=== PATIENT | male | born 1975 | race Caucasian/White ===

== ENCOUNTER 2022-06-21 11:33 | Inpatient (IN) | payer OTHER ==
[2022-06-21 12:06] LABS: Absolute Lymphocytes (CBC) 1.1 K/uL (0.7-4.9); Hematocrit 44.3 % (36.0-45.0); Lymphocytes % 11.3 % (15.3-44.8); MCV 86.7 fL (80-100); MPV 8.4 fL (7.6-11.3); RBC Red Blood Cell Count 5.11 M/uL (3.86-4.86)
[2022-06-21] MEDS ORDERED: METRONIDAZOLE 500mg IVPB 500 MG/100 ML BAG IV ONE (12:06)
[2022-06-21] MEDS ORDERED: MORPHINE 4 MG/ML SYR ONE ×3 (12:06→17:13)
[2022-06-21] MEDS ORDERED: CIPROFLOXACIN 400mg IV 400 MG/200 ML BAG IV ONE (12:06)
[2022-06-21] MEDS ORDERED: ONDANSETRON 4 MG/2 ML VIAL ONE ×3 (12:06→17:13)
[2022-06-21] MEDS ORDERED: NA CHLORIDE 0.9% 1,000 ML ONE (12:07)
[2022-06-21 12:11] LABS: Protime INR 1.15
[2022-06-21 12:26] LABS: Albumin 3.9 g/dL (3.4-5.0); Bilirubin Direct 0.2 mg/dL (0-0.2); Bilirubin Total 0.7 mg/dL (0.2-1.0); Magnesium 1.8 mg/dL (1.6-2.4); Potassium 3.7 mmol/L (3.5-5.1); Protein, Total 7.5 g/dL (6.4-8.2); Troponin High Sensitivity 16.9 pg/mL (<58.9)
[2022-06-21 12:59] LABS: SARS-COV-2 RT PCR NEGATIVE (NEGATIVE)
--- NOTE | 2022-06-21 13:19 | RAD REPORT ---
EXAM DESCRIPTION: CT - Abdomen Pelvis W Contrast - 06/21/2022 12:43 pm CLINICAL HISTORY: Abdominal distention. Left lower quadrant pain. Blood in stool COMPARISON: None. TECHNIQUE: Thin cut axial CT imaging of the abdomen and pelvis was performed following intravenous a dministration of 95 mL Isovue-300. Multiplanar reformats were generated and reviewed. All CT scans are performed using dose optimization technique as appropriate and may include automated exposure control or mA/KV adjustment according to patient size. FINDINGS: No suspicious findings in the lung bases. The liver, spleen, and pancreas show no suspicious findings. Gallbladder and biliary tree are also wi thout suspicious finding. Symmetric renal function is seen with no hydronephrosis or suspicious renal mass. No small bowel dilation. Long segment wall thickening and suspected intramural edema involving the sp lenic flexure, extending to the distal descending colon, albeit within limits of suboptimal colonic d istention. Mild sigmoid diverticulosis. No free air, free fluid or inflammatory stranding. No hernia, mass or bulky lymphadenopathy. Mild stranding along a few nonenlarged lymph nodes in the m esentery is nonspecific and could be reactive. The urinary bladder is suboptimally distended, which limits evaluation, without discrete abnormality. No suspicious bony findings. IMPRESSION: Long segment splenic flexure through distal descending colon wall thickening and edema, nonspecific but suggestive of segmental infectious or inflammatory colitis.
[2022-06-21] MEDS ORDERED: CEFTRIAXONE 2000 MG/VIAL ONE (13:48)
[2022-06-21] MEDS ORDERED: NA CHLORIDE 0.9% 50 ML ONE (13:49)
[2022-06-21 13:50] LABS: Urine Blood Negative (Negative); Urine Glucose Negative (Negative); Urine Protein Negative (Negative)
--- NOTE | 2022-06-21 13:50 | ER ---
Nurse's Notes [facility] Name: Bebo Chung Age: 47 yrs Sex: Male : 1975 Arrival Date: 06/21/2022 Time: 11:40 Bed 13 Private MD: Diagnosis: GI Bleed/ Gastrointestinal hemorrhage, unspecified-LOWER;Lower abdominal pain, unspecified-LEFT LOWER QUADRANT;Left sided colitis with rectal bleeding Presentation: 06/21 11:30 Chief complaint: Patient states: Blood in stools since 1230 AM. Complains of Lowe Left jh5 Quadrant pain that radiates to back. Patient has a history of polyp's. Pain 11/01. Coronavirus screen: Client indicates they have traveled out of the [place] in the last 14 days. Client traveled to: [place] At this time, the client does not indicate any symptoms associated with coronavirus-19. Ebola Screen: No symptoms or risks identified at this time. Initial Sepsis Screen: Does the patient meet any 2 criteria? No. Patient's initial sepsis screen is negative. Does the patient have a suspected source of infection? No. Patient's initial sepsis screen is negative. Risk Assessment: Do you want to hurt yourself or someone else? Patient reports no desire to harm self or others. Onset of symptoms was June 21, 2022. 11:30 Method Of Arrival: EMS: [facility] 11:30 Acuity: MOOKIE 3 5 Triage Assessment: 11:43 General: Appears uncomfortable, Behavior is calm, cooperative, appropriate for age. jh5 Pain: Complains of pain in back and abdomen. Cardiovascular: No deficits noted. Respiratory: No deficits noted. GI: Abdomen is non-distended, Reports lower abdominal pain. Historical: - Allergies: 11:43 No Known Allergies; 5 - Immunization history:: Adult Immunizations up to date, Client reports having NOT received the Covid vaccine. Flu vaccine is not up to date. - Social history:: Smoking status: Patient denies any tobacco usage or history of. - Family history:: not pertinent. Screenin:46 Abuse screen: Denies threats or abuse. Nutritional screening: No deficits noted. ll1 Tuberculosis screening: No symptoms or risk factors identified. 18:37 [facility] ED Fall Risk Assessment (Adult) Score/Fall Risk Level 0 - 2 = Low Risk ll1 Oriented to surroundings, Maintained a safe environment, Educated pt \T\ family on fall prevention, incl call for assistance when getting out of bed, Hourly rounding (assess needs \T\ fall precautionary measures) done. Assessment: 12:10 Reassessment: No changes from previously documented assessment. Patient and/or family ll1 updated on plan of care and expected duration. Pain level reassessed. Patient is alert, oriented x 3, equal unlabored respirations, skin warm/dry/pink. 12:35 Reassessment: No changes from previously documented assessment. Patient and/or family ll1 updated on plan of care and expected duration. Pain level reassessed. Patient is alert, oriented x 3, equal unlabored respirations, skin warm/dry/pink. 12:55 Reassessment: No changes from previously documented assessment. Patient and/or family ll1 updated on plan of care and expected duration. Pain level reassessed. Patient is alert, oriented x 3, equal unlabored respirations, skin warm/dry/pink. 13:34 Reassessment: No changes from previously documented assessment. Dr. Meléndez at . ll1 14:30 Reassessment: No changes from previously documented assessment. Patient and/or family ll1 updated on plan of care and expected duration. Pain level reassessed. Patient is alert, oriented x 3, equal unlabored respirations, skin warm/dry/pink. 15:30 Reassessment: No changes from previously documented assessment. ll1 16:30 Reassessment: No changes from previously documented assessment. ll1 17:15 Reassessment: No changes from previously documented assessment. Patient and/or family ll1 updated on plan of care and expected duration. Pain level reassessed. Patient is alert, oriented x 3, equal unlabored respirations, skin warm/dry/pink. 18:35 Reassessment: No changes from previously documented assessment. Patient and/or family ll1 updated on plan of care and expected duration. Pain level reassessed. Patient is alert, oriented x 3, equal unlabored respirations, skin warm/dry/pink. 19:30 Reassessment: Patient appears in no apparent distress at this time. Patient and/or aa9 family updated on plan of care and expected duration. Pain level reassessed. Patient is alert, oriented x 3, equal unlabored respirations, skin warm/dry/pink. 20:02 Reassessment: Patient appears in no apparent distress at this time. pt aware of room aa9 change. 20:02 Respiratory: Airway is patent Respiratory effort is even, unlabored. aa9 20:40 Reassessment: Patient appears in no apparent distress at this time. attempted to call aa9 report. 21:00 Reassessment: Patient appears in no apparent distress at this time. report called to dani Cortes RN. 21:21 Reassessment: Patient appears in no apparent distress at this time. nuclear medicine tech transported aa9 pt upstairs via wheelchair, understands room assignment denies concerns. Vital Signs: 11:30 BP 130 / 84; Pulse 79; Resp 18; Temp 98.6; Pulse Ox 97% ; Weight 113.4 kg; Height 6 ft. 5 2 in. (187.96 cm); Pain 7/10; 11:30 BP 144 / 80; Pulse 71; Pulse Ox 97% on R/A; ll1 14:49 BP 130 / 88; Pulse 63; Resp 17; Pulse Ox 100% on R/A; ll1 17:00 BP 106 / 71; Pulse 87; Resp 18; Pulse Ox 95% ; ll1 18:33 BP 133 / 84; Pulse 62; Resp 17; Pulse Ox 94% on R/A; ll1 19:30 BP 130 / 73; Pulse 68; Resp 17 S; Pulse Ox 95% on R/A; aa9 11:30 Body Mass Index 32.10 (113.40 kg, 187.96 cm) [facility] ED Course: 11:40 Patient arrived in ED. am2 11:42 Tim Meléndez MD is Attending Physician. [facility] 11:43 Triage completed. [facility] 11:43 Arm band placed on right wrist. [facility] 11:46 Kevin Hu, MARIBELL is Primary Nurse. ll1 11:47 Patient has correct armband on for positive identification. Bed in low position. Call ll1 light in reach. Side rails up X2. Client placed on continuous cardiac and pulse oximetry monitoring. NIBP monitoring applied. 11:50 Inserted saline lock: 20 gauge in right antecubital area, using aseptic technique. ll1 Blood collected. 12:10 EKG done, by ED staff, reviewed by Tim Meléndez MD. em1 12:45 Abdomen In Process Unspecified. EDMS 13:26 Chest Single View In Process Unspecified. EDMS 13:48 Pedro Pablo Chamberlain MD is Hospitalizing Provider. olivia 18:36 No provider procedures requiring assistance completed. Patient admitted, IV remains in ll1 place. Administered Medications: 12:30 Drug: Zofran (Ondansetron) 4 mg Route: IVP; Site: right antecubital; ll1 13:31 Follow up: Response: No adverse reaction ll1 12:32 Drug: morphine 4 mg Route: IVP; Infused Over: 4 mins; Site: right antecubital; ll1 13:31 Follow up: Response: No adverse reaction; Pain is decreased; RASS: Alert and Calm (0) ll1 12:34 Drug: Flagyl (metroNIDAZOLE) 500 mg Volume: 100 ml; Route: IVPB; Rate: 200 ml/hr; ll1 Infused Over: 30 mins; Site: right antecubital; 13:29 Follow up: Response: No adverse reaction; IV Status: Completed infusion; IV Intake: ll1 100ml 12:34 Drug: NS 0.9% 500 ml Route: IV; Rate: bolus; Site: right antecubital; ll1 13:32 Follow up: Response: No adverse reaction; IV Status: Completed infusion; IV Intake: ll1 500ml 13:30 Drug: NS 0.9% 1000 ml Route: IV; Rate: 125 ml/hr; Site: right antecubital; ll1 13:50 Follow up: Response: No adverse reaction; IV Status: Completed infusion; IV Intake: ll1 500ml 13:31 Drug: Ciprofloxacin 400 mg Volume: 200 ml; Route: IVPB; Infused Over: 60 mins; Site: ll1 right antecubital; 14:20 Follow up: Response: No adverse reaction; IV Status: Completed infusion; IV Intake: ll1 100ml 13:32 Drug: Zofran (Ondansetron) 4 mg Route: IVP; Site: right antecubital; ll1 14:19 Follow up: Response: No adverse reaction 1 13:33 Drug: morphine 4 mg {Note: rass 0, pain 7/10.} Route: IVP; Infused Over: 4 mins; Site: ll1 right antecubital; 14:20 Follow up: Response: No adverse reaction; Pain is decreased; RASS: Alert and Calm (0) ll1 14:19 Drug: Rocephin (cefTRIAXone) 2 grams Route: IV; Rate: per protocol; Site: right ll1 antecubital; 17:05 Follow up: Response: No adverse reaction; IV Status: Completed infusion; IV Intake: ll1 100ml 17:15 Drug: NS 0.9% 500 ml Route: IV; Rate: bolus; Site: right antecubital; ll1 18:33 Follow up: Response: No adverse reaction; IV Status: Completed infusion; IV Intake: ll1 500ml 17:16 Drug: morphine 4 mg Route: IVP; Infused Over: 4 mins; Site: right antecubital; ll1 18:33 Follow up: Response: No adverse reaction; Pain is decreased; RASS: Alert and Calm (0) ll1 17:16 Drug: Zofran (Ondansetron) 4 mg Route: IVP; Site: right antecubital; ll1 18:33 Follow up: Response: No adverse reaction 1 Medication: 11:47 VIS not applicable for this client. ll1 Intake: 13:29 IV: 100ml; Total: 100ml. ll1 13:32 IV: 500ml; Total: 600ml. ll1 13:50 IV: 500ml; Total: 1100ml. ll1 14:20 IV: 100ml; Total: 1200ml. ll1 17:05 IV: 100ml; Total: 1300ml. ll1 18:33 IV: 500ml; Total: 1800ml. ll1 Output: 20:02 Urine: 500ml (Voided); Total: 500ml. aa9 Outcome: 13:49 Decision to Hospitalize by Provider. olivia 18:37 Admitted to ER Hold. Please see [facility] for further documentation. ll1 18:37 Condition: stable 18:37 Instructed on the need for admit. 21:21 Patient left the ED. aa9 Signatures: Dispatcher [employer] EDTim Hardin MD MD cha Martinez, Eric em1 Gretta Leong am2 Kevin Hu RN RN ll1 Susan Peña RN RN 5 Alyx Yao RN RN aa9
--- NOTE | 2022-06-21 13:50 | EDPHYS ---
Physician Documentation [facility] Name: Bebo Chung Age: 47 yrs Sex: Male : 1975 Arrival Date: 06/21/2022 Time: 11:40 Bed 13 Private MD: ED Physician Tim Meléndez HPI: 06/21 13:38 This 47 yrs old Male presents to ER via EMS with complaints of LEFT LOWER ABD olivia PAIN AND RECTAL BLEEDING. 13:38 The patient presents with abdominal pain in the left upper quadrant, in the left lower olivia quadrant, abdominal distention in the upper abdomen, in the lower abdomen. Onset: The symptoms/episode began/occurred 1 day(s) ago. The patient presents to the emergency department with rectal bleeding, in toilet bowl, with multiple such episodes. Onset: The symptoms/episode began/occurred 1 day(s) ago. Abdominal pain: described as constant, crampy, located in the left upper quadrant and left lower quadrant. Modifying factors: The symptoms are alleviated by nothing, the symptoms are aggravated by nothing. Associated signs and symptoms: The patient has no apparent associated signs or symptoms. Modifying factors: The symptoms are alleviated by nothing, the symptoms are aggravated by nothing. Historical: - Allergies: 11:43 No Known Allergies; jh5 - Immunization history:: Adult Immunizations up to date, Client reports having NOT received the Covid vaccine. Flu vaccine is not up to date. - Social history:: Smoking status: Patient denies any tobacco usage or history of. - Family history:: not pertinent. ROS: 13:38 Constitutional: Negative for fever, chills, and weight loss, Eyes: Negative for injury, olivia pain, redness, and discharge, ENT: Negative for injury, pain, and discharge, Neck: Negative for injury, pain, and swelling, Cardiovascular: Negative for chest pain, palpitations, and edema, Respiratory: Negative for shortness of breath, cough, wheezing, and pleuritic chest pain, Back: Negative for injury and pain, : Negative for injury, bleeding, discharge, and swelling, MS/Extremity: Negative for injury and deformity, Skin: Negative for injury, rash, and discoloration, Neuro: Negative for headache, weakness, numbness, tingling, and seizure, Psych: Negative for depression, anxiety, suicide ideation, homicidal ideation, and hallucinations, Allergy/Immunology: Negative for hives, rash, and allergies, Endocrine: Negative for neck swelling, polydipsia, polyuria, polyphagia, and marked weight changes, Hematologic/Lymphatic: Negative for swollen nodes, abnormal bleeding, and unusual bruising. 13:38 Abdomen/GI: Positive for abdominal pain, abdominal cramps, abdominal distension, of the anterior aspect of left lateral abdomen, posterior aspect of left lateral abdomen, left upper quadrant and left lower quadrant. Exam: 13:38 Constitutional: This is a well developed, well nourished patient who is awake, alert, olivia and in no acute distress. Head/Face: Normocephalic, atraumatic. Eyes: Pupils equal round and reactive to light, extra-ocular motions intact. Lids and lashes normal. Conjunctiva and sclera are non-icteric and not injected. Cornea within normal limits. Periorbital areas with no swelling, redness, or edema. ENT: Nares patent. No nasal discharge, no septal abnormalities noted. Tympanic membranes are normal and external auditory canals are clear. Oropharynx with no redness, swelling, or masses, exudates, or evidence of obstruction, uvula midline. Mucous membranes moist. Neck: Trachea midline, no thyromegaly or masses palpated, and no cervical lymphadenopathy. Supple, full range of motion without nuchal rigidity, or vertebral point tenderness. No Meningismus. Chest/axilla: Normal chest wall appearance and motion. Nontender with no deformity. No lesions are appreciated. Cardiovascular: Regular rate and rhythm with a normal S1 and S2. No gallops, murmurs, or rubs. Normal PMI, no JVD. No pulse deficits. Respiratory: Lungs have equal breath sounds bilaterally, clear to auscultation and percussion. No rales, rhonchi or wheezes noted. No increased work of breathing, no retractions or nasal flaring. Back: No spinal tenderness. No costovertebral tenderness. Full range of motion. Male : Normal genitalia with no discharge or lesions. Skin: Warm, dry with normal turgor. Normal color with no rashes, no lesions, and no evidence of cellulitis. MS/ Extremity: Pulses equal, no cyanosis. Neurovascular intact. Full, normal range of motion. Neuro: Awake and alert, GCS 15, oriented to person, place, time, and situation. Cranial nerves II-XII grossly intact. Motor strength 5/5 in all extremities. Sensory grossly intact. Cerebellar exam normal. Normal gait. Psych: Awake, alert, with orientation to person, place and time. Behavior, mood, and affect are within normal limits. 13:38 ECG was reviewed by the Attending Physician. 13:38 Abdomen/GI: Inspection: distension, that is mild, Bowel sounds: normal, Palpation: mild abdominal tenderness, moderate abdominal tenderness, in the anterior aspect of left lateral abdomen, posterior aspect of left lateral abdomen, anterior aspect of right lateral abdomen, left upper quadrant and left lower quadrant. Vital Signs: 11:30 BP 130 / 84; Pulse 79; Resp 18; Temp 98.6; Pulse Ox 97% ; Weight 113.4 kg; Height 6 ft. jh5 2 in. (187.96 cm); Pain 7/10; 11:30 BP 144 / 80; Pulse 71; Pulse Ox 97% on R/A; ll1 14:49 BP 130 / 88; Pulse 63; Resp 17; Pulse Ox 100% on R/A; ll1 17:00 BP 106 / 71; Pulse 87; Resp 18; Pulse Ox 95% ; ll1 18:33 BP 133 / 84; Pulse 62; Resp 17; Pulse Ox 94% on R/A; ll1 19:30 BP 130 / 73; Pulse 68; Resp 17 S; Pulse Ox 95% on R/A; aa9 11:30 Body Mass Index 32.10 (113.40 kg, 187.96 cm) jh5 MDM: 11:42 Patient medically screened. olivia 11:42 Patient medically screened. olivia 13:43 Differential diagnosis: coronary artery disease, diverticulitis, GI Bleed, Mesenteric olivia ischemia or infarction, non-specific abd pain, Peptic Ulcer Disease, urinary tract infection. Data reviewed: vital signs, nurses notes, lab test result(s), EKG, radiologic studies, CT scan, plain films. Consideration of Admission/Observation Escalation of care including admission/observation considered. Management of patient was discussed with the following: Hospitalist: HARI. Independent interpretation of the following test(s) in the Emergency Department EKG: See my EKG interpretation above CT Scan: My interpretation is COLITIS. Test considered but Not performed: Ultrasound NO ABD USG. Historians other than the Patient: PATIENT ONLY. Care significantly affected by the following chronic conditions: NONE. 06/21 11:48 Order name: Basic Metabolic Panel; Complete Time: 13:36 [facility] 06/21 11:48 Order name: CBC with Diff [facility] 06/21 11:48 Order name: LFT's; Complete Time: 13:36 [facility] 06/21 11:48 Order name: Magnesium; Complete Time: 13:36 [facility] 06/21 11:48 Order name: NT PRO-BNP; Complete Time: 13:36 [facility] 06/21 11:48 Order name: PT-INR [facility] 06/21 11:48 Order name: Troponin HS; Complete Time: 13:36 [facility] 06/21 11:48 Order name: Lipase; Complete Time: 13:36 [facility] 06/21 11:48 Order name: COVID-19/FLU A+B; Complete Time: 13:36 [facility] 06/21 11:48 Order name: Type And Screen; Complete Time: 13:36 [facility] 06/21 12:08 Order name: CBC with Automated Diff; Complete Time: 13:36 [facility] 06/21 12:11 Order name: Protime (+INR); Complete Time: 13:36 [facility] 06/21 13:13 Order name: ABO/RH no charge; Complete Time: 13:36 [facility] 06/21 13:38 Order name: Stool Culture [facility] 06/21 13:38 Order name: Fecal Leukocyte Stain [facility] 06/21 13:50 Order name: Urine Dipstick-Ancillary; Complete Time: 13:58 [facility] 06/21 18:39 Order name: Ova and Parasites [facility] 06/21 18:43 Order name: Magnesium [facility] 06/21 18:43 Order name: Phosphorus [facility] 06/21 18:43 Order name: Basic Metabolic Panel [facility] 06/21 18:43 Order name: Basic Metabolic Panel [facility] 06/21 18:43 Order name: CBC with Automated Diff [facility] 06/21 18:43 Order name: CBC with Automated Diff [facility] 06/21 18:48 Order name: Hematocrit [facility] 06/21 18:48 Order name: Hematocrit [facility] 06/21 11:48 Order name: XRAY Chest (1 view) [facility] 06/21 11:48 Order name: EKG; Complete Time: 11:51 [facility] 06/21 11:48 Order name: Cardiac monitoring; Complete Time: 12:06 [facility] 06/21 11:48 Order name: EKG - Nurse/Tech; Complete Time: 12:06 [facility] 06/21 11:48 Order name: IV Saline Lock; Complete Time: 12:06 [facility] 06/21 11:48 Order name: Labs collected and sent; Complete Time: 12:06 [facility] 06/21 11:48 Order name: CT Abd/Pelvis - IV Contrast Only [facility] 06/21 12:18 Order name: Chest Single View [facility] 06/21 12:18 Order name: EKG Electrocardiogram [facility] 06/21 12:18 Order name: Abdomen ; Complete Time: 13:36 [facility] 06/21 18:48 Order name: Hematocrit [facility] 06/21 18:48 Order name: Hematocrit [facility] 06/21 18:48 Order name: Hematocrit [facility] 06/21 18:48 Order name: Hemoglobin [facility] 06/21 18:48 Order name: Hemoglobin [facility] 06/21 18:48 Order name: Hemoglobin [facility] 06/21 18:48 Order name: Hemoglobin [facility] 06/21 18:48 Order name: Hemoglobin [facility] 06/21 18:48 Order name: NPO [facility] 06/21 11:48 Order name: O2 Per Protocol; Complete Time: 11:49 [facility] 06/21 11:48 Order name: O2 Sat Monitoring; Complete Time: 11:49 [facility] 06/21 11:48 Order name: Urine Dipstick-Ancillary (obtain specimen); Complete Time: 13:50 [facility] 06/21 11:48 Order name: IV Saline Lock - Large Bore; Complete Time: 12:06 [facility] EC:38 Rate is 74 beats/min. Rhythm is regular. QRS [place] is Normal. [place] interval is normal. QRS olivia interval is normal. No Q waves. T waves are Normal. No ST changes noted. Clinical impression: NSR w/ Non-specific ST/T Changes and No evidence of ischemia. Interpreted by me. Reviewed by me. Administered Medications: 12:30 Drug: Zofran (Ondansetron) 4 mg Route: IVP; Site: right antecubital; ll1 13:31 Follow up: Response: No adverse reaction ll1 12:32 Drug: morphine 4 mg Route: IVP; Infused Over: 4 mins; Site: right antecubital; ll1 13:31 Follow up: Response: No adverse reaction; Pain is decreased; RASS: Alert and Calm (0) ll1 12:34 Drug: Flagyl (metroNIDAZOLE) 500 mg Volume: 100 ml; Route: IVPB; Rate: 200 ml/hr; ll1 Infused Over: 30 mins; Site: right antecubital; 13:29 Follow up: Response: No adverse reaction; IV Status: Completed infusion; IV Intake: ll1 100ml 12:34 Drug: NS 0.9% 500 ml Route: IV; Rate: bolus; Site: right antecubital; [facility] 13:32 Follow up: Response: No adverse reaction; IV Status: Completed infusion; IV Intake: ll1 500ml 13:30 Drug: NS 0.9% 1000 ml Route: IV; Rate: 125 ml/hr; Site: right antecubital; [facility] 13:50 Follow up: Response: No adverse reaction; IV Status: Completed infusion; IV Intake: ll1 500ml 13:31 Drug: Ciprofloxacin 400 mg Volume: 200 ml; Route: IVPB; Infused Over: 60 mins; Site: [facility] right antecubital; 14:20 Follow up: Response: No adverse reaction; IV Status: Completed infusion; IV Intake: ll1 100ml 13:32 Drug: Zofran (Ondansetron) 4 mg Route: IVP; Site: right antecubital; [facility] 14:19 Follow up: Response: No adverse reaction [facility] 13:33 Drug: morphine 4 mg {Note: rass 0, pain 7/10.} Route: IVP; Infused Over: 4 mins; Site: [facility] right antecubital; 14:20 Follow up: Response: No adverse reaction; Pain is decreased; RASS: Alert and Calm (0) [facility] 14:19 Drug: Rocephin (cefTRIAXone) 2 grams Route: IV; Rate: per protocol; Site: right [facility] antecubital; 17:05 Follow up: Response: No adverse reaction; IV Status: Completed infusion; IV Intake: ll1 100ml 17:15 Drug: NS 0.9% 500 ml Route: IV; Rate: bolus; Site: right antecubital; [facility] 18:33 Follow up: Response: No adverse reaction; IV Status: Completed infusion; IV Intake: ll1 500ml 17:16 Drug: morphine 4 mg Route: IVP; Infused Over: 4 mins; Site: right antecubital; [facility] 18:33 Follow up: Response: No adverse reaction; Pain is decreased; RASS: Alert and Calm (0) ll1 17:16 Drug: Zofran (Ondansetron) 4 mg Route: IVP; Site: right antecubital; ll1 18:33 Follow up: Response: No adverse reaction ll1 Disposition Summary: 06/21/22 13:49 Hospitalization Ordered Hospitalization Status: Inpatient Admission olivia Provider: Pedro Pablo Chamberlain cha Location: Telemetry/MedSurg (Inpatient) olivia Condition: Stable olivia Problem: new olivia Symptoms: have improved olivia Bed/Room Type: Standard [facility] Room Assignment: 207(06/21/22 19:34) Diagnosis - GI Bleed/ Gastrointestinal hemorrhage, unspecified - LOWER olivia - Lower abdominal pain, unspecified - LEFT LOWER QUADRANT olivia - Left sided colitis with rectal bleeding olivia Forms: - Medication Reconciliation Form olivia - SBAR form olivia Signatures: Dispatcher [employer] EDMS Kim Butler RN RN Tim Meléndez MD MD cha Lewis, Lynsay, RN RN ll1 Susan Peña RN RN jh5 Corrections: (The following items were deleted from the chart) 18:48 18:43 Clear Liquid ordered. EDMS EDMS 18:48 18:43 Hemoglobin A1c ordered. EDMS EDMS 18:48 18:43 Lipid Profile ordered. EDMS EDMS 18:48 18:43 Creatine Phosphokinase ordered. EDMS EDMS 18:48 18:43 NT PRO-BNP ordered. EDMS EDMS 18:48 18:43 Urinalysis ordered. EDMS EDMS 19:34 13:49 olivia
--- NOTE | 2022-06-21 14:41 | RAD REPORT ---
EXAM DESCRIPTION: Lillian Single View06/21/2022 1:24 pm CLINICAL HISTORY: ABDOMINAL DISTENTION COMPARISON: No comparisons TECHNIQUE: Portable AP view of the chest. FINDINGS: The lungs are clear. No pneumothorax or effusion. The cardiomediastinal contours are unrem arkable. IMPRESSION: No acute cardiopulmonary process.
[2022-06-21] MEDS ORDERED: MORPHINE 4 MG/ML SYR IV PRN (17:07)
[2022-06-21] MEDS ORDERED: SODIUM CHLORIDE 0.9% 10ML INJ IV PRN (17:08)
--- NOTE | 2022-06-21 17:12 | P.HP ---
Certification for Inpatient Patient admitted to: Inpatient With expected LOS: >2 Midnights Patient will require the following post-hospital care: None Practitioner: I am a practitioner with admitting privileges, knowledge of patient current condition, hospital course, and medical plan of care. Services: Services provided to patient in accordance with Admission requirements found in Title 42 Section 412.3 of the Code of Federal Regulations Patient History Date of Service: 06/21/22 Reason for admission: Abdominal pain and rectal bleeding. History of Present Illness: Patient is a 47-year-old male with a past medical history significant for chronic back pain who presents with complaint of left lower quadrant pain ongoing since yesterday. Patient rated pain as 10/10 in severity and described pain as sharp in quality. Patient also reports rectal bleeding described as bright red blood. Patient reported associated signs and symptoms of fatigue, weakness, headache, cough and chest tightness. Patient denies any other signs or symptoms. Symptoms are aggravated or relieved by nothing. Patient decided to present to the hospital due to worsening symptoms. Allergies No Known Allergies Allergy (Unverified 06/21/22 16:58) - Past Medical/Surgical History -: Chronic Back pain Past Surgical History: Reviewed- Non-Contributory - Family History Father -: Heart disease, Diabetes Mother -: Heart disease, Hypertension, Diabetes - Social History Smoking Status: Former smoker Alcohol use: Yes CD- Drugs: No Caffeine use: Yes Place of Residence: Home Review of Systems General: Weakness, Other (Fatigue) Eyes: Unremarkable ENT: Unremarkable Respiratory: Cough Cardiovascular: Other (Chest tightness ) Gastrointestinal: Abdominal Pain Genitourinary: Unremarkable Musculoskeletal: Back Pain Integumentary: Unremarkable Neurological: Other (Headache) Lymphatics: Unremarkable Physical Examination - Physical Exam General: Alert, In no apparent distress, Cooperative HEENT: Atraumatic, PERRLA, Mucous membr. moist/pink, EOMI, Sclerae nonicteric Neck: Supple, 2+ carotid pulse no bruit, No LAD, Without JVD or thyroid abnormality Respiratory: Clear to auscultation bilaterally, Normal air movement Cardiovascular: Regular rate/rhythm, Normal S1 S2 Capillary refill: <2 Seconds Gastrointestinal: Normal bowel sounds, Soft and benign, No tenderness Musculoskeletal: No clubbing, No tenderness Integumentary: No rashes, No significant lesion Neurological: Normal speech, Normal tone, Normal affect Lymphatics: No axilla or inguinal lymphadenopathy - Studies Laboratory Data (last 24 hrs) 06/21/22 11:50: PT 12.6 H, INR 1.15 06/21/22 11:50: WBC 10.10, Hgb 15.0, Hct 44.3, Plt Count 240 06/21/22 11:50: Sodium 137, Potassium 3.7, BUN 12, Creatinine 1.02, Glucose 116 H, Magnesium 1.8, Total Bilirubin 0.7, AST 17, ALT 34, Alkaline Phosphatase 56, Lipase 16 Assessment and Plan - Plan --Colitis. Noted on imaging. Patient placed on antibiotics. Continue supportive care. --Gastrointestinal bleeding. H&H stable. Patient placed on Protonix. Gastroenterology consulted. Will await further recommendations. --Chronic back pain\Abdominal Pain. We will manage pain with current pain medication regimen. -- Headache. Tylenol as needed. --DVT prophylaxis with SCDs. Discharge Plan: Home Plan to discharge in: Greater than 2 days - Advance Directives Does patient have a Living Will: No Does patient have a Durable POA for Healthcare: No - Code Status/Comfort Care Code Status Assessed: Yes Physician Review: Patient Assessed, Agree with Above Assessment and Plan Critical Care: No
[2022-06-21] MEDS ORDERED: NA CHLORIDE 0.9% 500 ML ONE (17:13)
[2022-06-21 18:52] VITALS: BMI 32.1
[2022-06-21 20:05] LABS: Hematocrit 42.5 % (39.6-49.0)
[2022-06-21 20:18] LABS: Magnesium 1.9 mg/dL (1.6-2.4); Phosphorus 4.3 mg/dL (2.5-4.9)
[2022-06-21] MEDS: Ringers Lactate 1,000 ML IV SCH (22:02)
[2022-06-21] MEDS: PANTOPRAZOLE 40 MG INJ IVP SCH (22:02)
[2022-06-21] MEDS: ONDANSETRON 4 MG/2 ML VIAL IV PRN (22:08)
[2022-06-21] MEDS: MORPHINE 2 MG/ML SYR IV PRN (22:08)
[2022-06-22] MEDS: PIPER TAZO 3.375 GM in NA CHLORIDE 0.9% 100 ML IV SCH ×3 (00:38→17:11)
[2022-06-22] MEDS: MORPHINE 2 MG/ML SYR IV PRN (02:05)
[2022-06-22 02:21] LABS: Absolute Lymphocytes (CBC) 2.2 K/uL (0.7-4.9); Hematocrit 40.6 % (39.6-49.0); Lymphocytes % 18.9 % (15.3-44.8); MCV 87.1 fL (80-100); MPV 8.9 fL (7.6-11.3); RBC Red Blood Cell Count 4.66 M/uL (4.33-5.43)
[2022-06-22 02:26] LABS: Potassium 3.9 mmol/L (3.5-5.1)
[2022-06-22] MEDS: HYDROMORPHONE HCL 0.5 MG/0.5 ML INJ IV PRN ×5 (04:18→20:49)
[2022-06-22] MEDS: Ringers Lactate 1,000 ML IV SCH ×3 (04:18→20:50)
[2022-06-22] MEDS: PANTOPRAZOLE 40 MG INJ IVP SCH ×2 (08:21→20:49)
[2022-06-22] MEDS: ONDANSETRON 4 MG/2 ML VIAL IV PRN ×2 (12:11→20:55)
--- NOTE | 2022-06-22 12:51 | EKG ---
Test Date: 2022-06-21 Test Time: 12:07:37 Talent Acquisition Associate: DON MEASUREMENT RESULTS: Intervals: Rate: 74 LA: 164 QRSD: 102 QT: 412 QTc: 457 [place]: P: 61 LA: 164 QRS: 40 T: 62 INTERPRETIVE STATEMENTS: Sinus rhythm with occasional premature ventricular complexes Otherwise normal ECG No previous ECG available for comparison Electronically Signed On 06-22-22 12:49:25 OVER [employer] SUPERVISOR by Dannie Garay
[2022-06-22 13:50] LABS: Hematocrit 40.1 % (39.6-49.0)
--- NOTE | 2022-06-22 20:03 | P.PN ---
Subjective Date of Service: 06/22/22 Chief Complaint: Abdominal pain and rectal bleeding. No acute events overnight. He reports that his left-sided abdominal pain is persistent, but gradually improving. He continues to have maroon/bright red blood per rectum. He denies nausea or vomiting. He reports having a colonoscopy in Fall 2021 in [place], which was reportedly only positive for a couple of polyps. Review of Systems 10-point ROS is otherwise unremarkable Gastrointestinal: Abdominal Pain Physical Examination - Vital Signs Temperature: 98.8 F Blood Pressure: 125/76 Pulse: 67 Respirations: 16 Pulse Ox (%): 95 - Physical Exam General: Alert, In no apparent distress, Oriented x3 HEENT: Atraumatic, EOMI, Sclerae nonicteric Neck: JVD not distended Respiratory: Clear to auscultation bilaterally, Normal air movement Cardiovascular: No edema, Regular rate/rhythm, Normal S1 S2, No gallops, No rubs, No murmurs Gastrointestinal: Normal bowel sounds, Soft and benign, Non-distended, No rebound, No guarding, Tenderness (left-sided abdomen) Musculoskeletal: No clubbing Integumentary: No rashes Neurological: Normal speech, Normal affect Assessment And Plan - Plan # Acute Lower Gastrointestinal Bleeding secondary to Splenic Flexure/Distal Descending Colitis Differential diagnoses include, but are not limited to, infectious, inflammatory, or ischemic colitis. - Does not meet sepsis criteria - CT abdomen/pelvis = "long segment splenic flexure through distal descending colon wall thickening and edema, nonspecific but suggestive of segmental infectious or inflammatory colitis." - Consulted Gastroenterology and spoke with Dr. Mao - recommendations appreicated - Serial H&H - Transfuse for Hgb < 7.0 - Continue piperacillin-tazobactam and pantoprazole - Continue Lactated Ringers' @ 125 mL/hr - 2 large bore IVs - Stool cultures pending - PRN pain control - NPO pending GI recs Pedro Pablo Chamberlain M.D.
[2022-06-23] MEDS ORDERED: PIPERACIL/TAZO 3.375 GM VIAL IV ONE (00:40)
[2022-06-23] MEDS: HYDROMORPHONE HCL 0.5 MG/0.5 ML INJ IV PRN ×6 (00:49→21:20)
[2022-06-23] MEDS: PIPER TAZO 3.375 GM in NA CHLORIDE 0.9% 100 ML IV SCH ×3 (00:49→17:12)
[2022-06-23] MEDS ORDERED: CALCIUM CARBONATE CHEW 500MG TAB PO ONE ×2 (01:37→19:18)
[2022-06-23] MEDS: ONDANSETRON 4 MG/2 ML VIAL IV PRN ×4 (01:40→21:20)
[2022-06-23 03:55] LABS: Absolute Lymphocytes (CBC) 2.6 K/uL (0.7-4.9); Hematocrit 38.3 % (39.6-49.0); Lymphocytes % 21.6 % (15.3-44.8); MCV 86.9 fL (80-100); MPV 8.6 fL (7.6-11.3)
[2022-06-23] MEDS: Ringers Lactate 1,000 ML IV SCH ×4 (05:15→22:00)
[2022-06-23] MEDS: PANTOPRAZOLE 40 MG INJ IVP SCH ×2 (09:29→21:28)
--- NOTE | 2022-06-23 11:10 | P.PN ---
Subjective Date of Service: 06/23/22 Chief Complaint: Abdominal pain and rectal bleeding. No acute events overnight. He reports that his left-sided abdominal pain is persistent, and slightly worse compared to yesterday. He reports that he is still experiencing bright red blood per rectum. He has a picture of the bloody s tool on his cell phone. He denies nausea or vomiting. Appreciate GI recommendations. Review of Systems 10-point ROS is otherwise unremarkable Gastrointestinal: Abdominal Pain, Diarrhea, Hematochezia Physical Examination - Vital Signs Temperature: 97.9 F Blood Pressure: 116/67 Pulse: 81 Respirations: 16 Pulse Ox (%): 96 Assessment And Plan - Plan - Physical Exam General: Alert, In no apparent distress, Oriented x3 HEENT: Atraumatic, Sclerae nonicteric Neck: JVD not distended Respiratory: Clear to auscultation bilaterally, Normal air movement Cardiovascular: No edema, Regular rate/rhythm, No murmurs Gastrointestinal: Normal bowel sounds, Soft, Non-distended, Tenderness (left- sided abdomen) Musculoskeletal: No clubbing Integumentary: No rashes Neurological: Normal speech, Normal affect # Acute Lower Gastrointestinal Bleeding secondary to Splenic Flexure/Distal Descending Colitis Differential diagnoses include, but are not limited to, infectious, inflammatory, or ischemic colitis. - Does not meet sepsis criteria - CT abdomen/pelvis = "long segment splenic flexure through distal descending colon wall thickening and edema, nonspecific but suggestive of segmental infectious or inflammatory colitis." - Consulted Gastroenterology and spoke with Dr. Mao - recommendations appr eicated - Serial H&H - Transfuse for Hgb < 7.0 - Continue piperacillin-tazobactam and pantoprazole - Continue Lactated Ringers' @ 125 mL/hr - 2 large bore IVs - Stool cultures pending - PRN pain control Pedro Pablo Chamberlain M.D.
[2022-06-24] MEDS: Ringers Lactate 1,000 ML IV SCH ×5 (01:17→21:17)
[2022-06-24] MEDS: HYDROMORPHONE HCL 0.5 MG/0.5 ML INJ IV PRN ×6 (01:17→21:24)
[2022-06-24] MEDS: PIPER TAZO 3.375 GM in NA CHLORIDE 0.9% 100 ML IV SCH ×3 (01:17→17:05)
[2022-06-24] MEDS: ONDANSETRON 4 MG/2 ML VIAL IV PRN ×3 (05:32→17:06)
[2022-06-24] MEDS: ACETAMINOPHEN 325 MG TABLET PO PRN ×2 (05:37→20:36)
[2022-06-24 06:18] LABS: Absolute Lymphocytes (CBC) 2.4 K/uL (0.7-4.9); Hematocrit 37.1 % (39.6-49.0); Lymphocytes % 28.1 % (15.3-44.8); MCV 86.9 fL (80-100); MPV 9.1 fL (7.6-11.3); RBC Red Blood Cell Count 4.28 M/uL (4.33-5.43)
[2022-06-24] MEDS: PANTOPRAZOLE 40 MG INJ IVP SCH ×2 (08:50→20:37)
[2022-06-24] MEDS ORDERED: CALCIUM CARBONATE CHEW 500MG TAB PO ONE (18:00)
--- NOTE | 2022-06-24 18:02 | P.PN ---
Subjective Date of Service: 06/24/22 Chief Complaint: Abdominal pain and rectal bleeding. No acute events overnight. He reports that his left-sided abdominal pain is much improved today. He denies any hematochezia over the last [address] Mao, he believes this to have been ischemic colitis. Will start clear liquids and advance as tolerated. He denies nausea or vomiting. Review of Systems 10-point ROS is otherwise unremarkable Gastrointestinal: Abdominal Pain (minimal) Physical Examination - Vital Signs Temperature: 98.2 F Blood Pressure: 117/69 Pulse: 66 Respirations: 17 Pulse Ox (%): 95 Assessment And Plan - Plan - Physical Exam General: Alert, In no apparent distress, Oriented x3 HEENT: Atraumatic, Sclerae nonicteric Neck: JVD not distended Respiratory: Clear to auscultation bilaterally, Normal air movement Cardiovascular: No edema, Regular rate/rhythm, No murmurs Gastrointestinal: Normal bowel sounds, Soft, Non-distended, Tenderness (minimal, left-sided abdomen) Musculoskeletal: No clubbing Integumentary: No rashes Neurological: Normal speech, Normal affect # Acute Lower Gastrointestinal Bleeding secondary to Splenic Flexure/Distal Descending Colitis - Does not meet sepsis criteria - CT abdomen/pelvis = "long segment splenic flexure through distal descending colon wall thickening and edema, nonspecific but suggestive of segmental infectious or inflammatory colitis." - Consulted Gastroenterology and spoke with Dr. Mao - recommendations appreciated - Serial H&H - Transfuse for Hgb < 7.0 - Continue piperacillin-tazobactam and pantoprazole - Continue Lactated Ringers' @ 125 mL/hr - Started clear liquid diet - advance as tolerated - 2 large bore IVs - Stool cultures pending - PRN pain control Pedro Pablo Chamberlain M.D.
[2022-06-25] MEDS: ONDANSETRON 4 MG/2 ML VIAL IV PRN ×2 (00:48→09:23)
[2022-06-25] MEDS: PIPER TAZO 3.375 GM in NA CHLORIDE 0.9% 100 ML IV SCH ×2 (00:53→09:23)
[2022-06-25] MEDS: HYDROMORPHONE HCL 0.5 MG/0.5 ML INJ IV PRN ×3 (01:04→09:22)
[2022-06-25] MEDS: Ringers Lactate 1,000 ML IV SCH ×2 (02:22→09:21)
[2022-06-25 03:09] LABS: Absolute Lymphocytes (CBC) 2.7 K/uL (0.7-4.9); Hematocrit 38.7 % (39.6-49.0); Lymphocytes % 37.7 % (15.3-44.8); MCV 87.1 fL (80-100); MPV 8.7 fL (7.6-11.3); RBC Red Blood Cell Count 4.45 M/uL (4.33-5.43)
[2022-06-25 03:27] LABS: Potassium 3.6 mmol/L (3.5-5.1)
[2022-06-25] MEDS ORDERED: POTASSIUM CL SA 10 MEQ TAB PO ONE (06:00)
[2022-06-25] MEDS: PANTOPRAZOLE 40 MG INJ IVP SCH (09:30)
[2022-06-25 12:58] VITALS: BP 115/58; TEMP 99.3
[2022-06-25 13:49] VITALS: O2SAT 96
[2022-06-25] MEDS ORDERED: DICYCLOMINE HCL 10 MG CAP PO PRN (14:57)
--- NOTE | 2022-06-25 15:07 | P.DS ---
Admission Date: 06/21/22 Discharge Date: 06/25/22 Disposition: ROUTINE DISCHARGE Discharge Condition: GOOD Reason for Admission: Abdominal pain and rectal bleeding. Consultations: 1. Gastroenterology Hospital Course: DIAGNOSES: # Acute Lower Gastrointestinal Bleeding secondary to Splenic Flexure/Distal Descending Colitis - suspect Ischemic Colitis # Chronic Back Pain HOSPITAL COURSE: Mr. Bebo Chung is a 47 year old male with a past medical history significant for chronic back pain who was admitted to the [facility] on 06/21/2022 for abdominal pain and hematochezia. He was admitted to the Medicine service. Upon further evaluation, his CT abdomen/pelvis revealed, "long segment splenic flexure through distal descending colon wall thickening and edema, nonspecific but suggestive of segmental infectious or inflammatory colitis." He was placed NPO and Gastroenterology was consulted. He was evaluated by Dr. Mao, who felt that his symptoms were secondary to ischemic colitis. He was started on IV fluids and his abdominal pain gradually improved. He was initially placed NPO due to significant pain and inability to tolerate a diet. As his pain improved, his diet was advanced to a GI soft. This morning, he felt significantly better and Dr. Mao has cleared him for discharge with a colonoscopy in 4-6 weeks. He was given an additional 7 days of amoxicillin-clavulanate in case his colitis was to be infectious in nature. Of note, his CT abdomen/pelvis revealed, "mild stranding along a few nonenlarged lymph nodes in the mesentery is nonspecific and could be reactive." I informed of this finding and advised that he follow this up with his PCP in [place]. He verbalized understanding and agreed to make this appointment. On 06/25/2022, he was seen on rounds and deemed medically stable for discharge. He was discharged with instructions to schedule follow-up appointments with his PCP and Gastroenterology. He was provided prescriptions for amoxicillin- clavulanate and dicyclomine. He and his were given the opportunity to ask questions and reported no further questions. Furthermore, all questions were answered to the best of my ability. A copy of this discharge summary will be sent to the above providers to facilitate continuity of care. Today, I personally spent 25 minutes on his case, of which greater than 50% of the time was spent in patient education, counseling, and coordination of care as described above. - Physical Exam General: Alert, In no apparent distress, Oriented x3 HEENT: Atraumatic, Sclerae nonicteric Neck: JVD not distended Respiratory: Clear to auscultation bilaterally, Normal air movement Cardiovascular: No edema, Regular rate/rhythm, No murmurs Gastrointestinal: Normal bowel sounds, Soft, Non-distended, No tenderness Musculoskeletal: No clubbing Integumentary: No rashes Neurological: Normal speech, Normal affect Vital Signs/Physical Exam: Temp Pulse Resp BP Pulse Ox 99.3 F 61 16 115/58 L 92 06/25/22 12:00 06/25/22 12:00 06/25/22 12:00 06/25/22 12:00 06/25/22 12:00 Laboratory Data at Discharge: WBC 7.10 K/uL (4.3-10.9) 06/25/22 02:54 Hgb 13.3 g/dL (13.6-17.9) L 06/25/22 02:54 Hct 38.7 % (39.6-49.0) L 06/25/22 02:54 Plt Count 198 K/uL (152-406) 06/25/22 02:54 PT 12.6 SECONDS (9.5-12.5) H 06/21/22 11:50 INR 1.15 06/21/22 11:50 Sodium 138 mmol/L (136-145) 06/25/22 02:54 Potassium 3.6 mmol/L (3.5-5.1) 06/25/22 02:54 BUN 4 mg/dL (7-18) L 06/25/22 02:54 Creatinine 0.78 mg/dL (0.70-1.30) 06/25/22 02:54 Glucose 89 mg/dL (74-106) 06/25/22 02:54 Phosphorus 4.3 mg/dL (2.5-4.9) 06/21/22 19:43 Magnesium 1.9 mg/dL (1.6-2.4) 06/21/22 19:43 Total Bilirubin 0.7 mg/dL (0.2-1.0) 06/21/22 11:50 AST 17 U/L (15-37) 06/21/22 11:50 ALT 34 U/L (16-61) 06/21/22 11:50 Alkaline Phosphatase 56 U/L (45-117) 06/21/22 11:50 Triglycerides Cancelled 06/21/22 Unknown Cholesterol Cancelled 06/21/22 Unknown HDL Cholesterol Cancelled 06/21/22 Unknown Cholesterol/HDL Ratio Cancelled 06/21/22 Unknown Lipase 16 U/L (13-75) 06/21/22 11:50 Home Medications: Amox/Clavulanate [Augmentin 875-125 Tab*] 875 mg PO BID 7 Days #14 tab 06/25/22 Dicyclomine [Bentyl*] 10 mg PO TID PRN 7 Days #20 cap 06/25/22 New Medications: Amox/Clavulanate [Augmentin 875-125 Tab*] 875 mg PO BID 7 Days #14 tab Dicyclomine [Bentyl*] 10 mg PO TID PRN 7 Days #20 cap PRN Reason: Abdominal Cramps Physician Discharge Instructions: 1. Please attend your follow-up appointment with your PCP on 06/28/2022 2. Please call and schedule a follow-up appointment with your [employer] in [place] in 5-7 days - You will need a colonoscopy in 4-6 weeks to further evaluate the cause of your colitis Diet: AHA Activity: Ad deborah Followup: NONE,NONE [Primary Care Provider] - Berry Mao MD [ASSOCIATE-ACTIVE - CAN ADMIT] - Time spent managing pt's care (in minutes): 25
[2022-06-25] MEDS ORDERED: AMOX/K CLAV 875 MG TAB PO SCH (21:00)
== END 2022-06-25 16:00 | disposition home or self-care (01) | DRG 395 ==
LOC: EDSEX 11:33 → ER 11:33 → ERHOLD 17:05 → 2ND 19:38
PROVIDERS: ADMIT Internal Medicine; ATTEND Internal Medicine
DX: K55.9 Vascular disorder of intestine, unspecified (principal); G89.29 Other chronic pain; M54.9 Dorsalgia, unspecified; Z87.891 Personal history of nicotine dependence; Z28.310 Unvaccinated for COVID-19; Z79.899 Other long term (current) drug therapy; Z20.822 Contact with and (suspected) exposure to COVID-19
CPT/HCPCS: 0240U; 36415; 71045; 74177; 80048; 80076; 81003; 83690; 83735; 83880; 84100; 84484; 85014; 85018; 85025; 85610; 86850; 86900; 86901; 87045; 87046; 87177; 87209; 89055; 93005; 96361; 96365; 96366; 96367; 96368; 96375; 99285; C9113; J0696; J0744; J1170; J2270; J2405; J2543; J7030; J7040; J7120; Q9967